=== PATIENT | female | born 1970 | race Caucasian/White ===

== ENCOUNTER → 2016-09-08 | Outpatient (CLI) | payer BC, OTHER ==
--- NOTE | 2016-09-08 10:43 | REPMRS ---
Patient History The patient states she had a clinical breast exam in 08/2016. Patient had first child at age 30. Family history of colorectal cancer in father at age 77 and colorectal cancer in 2 paternal uncles. Taking hormonal contraceptives for 7 years. Digital Woman Screen Mammo: September 08, 2016 - Exam #: [id number] Bilateral CC and MLO view(s) were taken. Technologist: Saritha German, Technologist Prior study comparison: May 15, 2015, digital woman screen mammo performed at [facility]. December 26, 2013, digital woman screen mammo performed at [facility]. FINDINGS: There are scattered fibroglandular densities. There has been no change in the appearance of the mammogram from the prior studies. There is a mild amount of residual fibroglandular tissue which is fairly symmetric. There is no interval development of dominant mass, architectural distortion, or clustered microcalcification suggestive of malignancy. Skin mole overlies lower outer quadrant left breast unchanged. Scattered lymph nodes are seen in the right axilla. No significant changes when compared with prior studies. ASSESSMENT: BI-RADS/ACR category 2 mammogram. Benign finding(s). Recommendation Routine screening mammogram in 1 year (for women over age 40). This mammogram was interpreted with the aid of an FDA-approved computer-aided dectection system. A. Negative x-ray reports should not delay biopsy if a dominant or clinically suspicious mass is present. B. Four to eight percent of cancers are not identified by mammography. C. Adenosis and dense breast may obscure an underlying neoplasm. Electronically Signed By: Guille Mcdaniel MD 09/08/16 1849
== END ==
LOC: M WHC 09:32
PROVIDERS: ATTEND Nurse Practitioner Family
DX: Z12.31 Encounter for screening mammogram for malignant neoplasm of breast (principal)

== ENCOUNTER → 2016-09-08 | Outpatient (REF) | payer OTHER | LOC: M SFHCWAGY 11:30 | PROVIDERS: ATTEND Nurse Practitioner Family | DX: Z12.4 Encounter for screening for malignant neoplasm of cervix (principal); Z12.31 Encounter for screening mammogram for malignant neoplasm of breast ==

== ENCOUNTER → 2018-01-27 | Outpatient (REF) | payer OTHER ==
[2018-01-29 16:20] LABS: HPV HYBRID CAPTURE II Negative (Negative)
== END ==
LOC: M SFHCWAGY 10:32
DX: Z12.4 Encounter for screening for malignant neoplasm of cervix (principal)

== ENCOUNTER → 2018-01-27 | Outpatient (CLI) | payer BC | LOC: M WHC 10:02 | DX: Z12.31 Encounter for screening mammogram for malignant neoplasm of breast (principal) | CPT/HCPCS: 77067 ==

== ENCOUNTER → 2019-05-10 | Outpatient (REF) | payer OTHER | LOC: M SFHCWAGY 11:59 | PROVIDERS: ATTEND Nurse Practitioner Family | DX: N95.1 Menopausal and female climacteric states (principal) ==

== ENCOUNTER → 2019-05-10 | Outpatient (CLI) | payer BC ==
--- NOTE | 2019-05-10 12:30 | REPMRS ---
Patient History The patient states she had a clinical breast exam in 04/2019. Patient had first child at age 30. Family history of colorectal cancer in paternal uncle, colorectal cancer at age 77 in father, colorectal cancer in paternal uncle. Taking hormonal contraceptives for 9 years 3 months. 3D TOMOSYNTHESIS WAS PERFORMED. The [facility] lifetime risk for breast cancer is 12.9%. Digital Woman Screen Mammo: May 10, 2019 - Exam #: [id number] Bilateral CC and MLO view(s) were taken. Technologist: Hanh Stokes Technologist Prior study comparison: January 27, 2018, bilateral digital woman screen mammo performed at [facility]. September 08, 2016, digital woman screen mammo performed at [facility]. FINDINGS: There are scattered fibroglandular densities. There has been no change in the appearance of the mammogram from the prior studies. There is a mild amount of residual fibroglandular tissue which is fairly symmetric. There is no interval development of dominant mass, architectural distortion, or clustered microcalcification suggestive of malignancy. Assessment: BI-RADS/ACR category 1 mammogram. Negative Mammogram. Recommendation Routine screening mammogram in 1 year (for women over age 40). This mammogram was interpreted with the aid of an FDA-approved computer-aided dectection system. Electronically Signed By: Waqar Garcia MD 05/10/19 [id number]
== END ==
LOC: M WHC 10:34
PROVIDERS: ATTEND Nurse Practitioner Family
DX: Z12.31 Encounter for screening mammogram for malignant neoplasm of breast (principal); Z80.0 Family history of malignant neoplasm of digestive organs

== ENCOUNTER 2019-09-05 07:07 | Day surgery (SDC) | payer BC, OTHER ==
[~2019-09-05] VITALS: Ht 162.6 cm; Wt 86.6 kg
[~2019-09-05 07:07] MED LIST: NS 1,000 ML IV ONE
[2019-09-05] MEDS ORDERED: LIDOCAINE 2% INJ 100 MG/5 ML SDV (FOR ANES.) As Ordered ONE (07:18)
[2019-09-05] MEDS ORDERED: propofoL 200 MG/20 ML VIAL As Ordered ONE ×2 (07:33→08:20)
--- NOTE | 2019-09-05 08:41 | ROOR ---
Patient Name: Katie Velasquez Procedure Date: 09/05/2019 8:00 AM Date of : 1970 Age: 49 Room: [facility] Gender: Female Note Status: Finalized Procedure: Colonoscopy Indications: Screening for colorectal malignant neoplasm Providers: Preston Tomlin MD Referring MD: Mima Holcomb NP Requesting Provider: Medicines: Monitored Anesthesia Care Complications: No immediate complications. Procedure: Pre-Anesthesia Assessment: - Prior to the procedure, a History and Physical was performed, and patient medications and allergies were reviewed. The patient is competent. The risks and benefits of the procedure and the sedation options and risks were discussed with the patient. All questions were answered and informed consent was obtained. Patient identification and proposed procedure were verified by the physician, the nurse and the anesthesiologist in the procedure room. Mental Status Examination: alert and oriented. Airway Examination: normal oropharyngeal airway and neck mobility. Respiratory Examination: clear to auscultation. CV Examination: normal. Prophylactic Antibiotics: The patient does not require prophylactic antibiotics. Prior Anticoagulants: The patient has taken no previous anticoagulant or antiplatelet agents. ASA Grade Assessment: II - A patient with mild systemic disease. After reviewing the risks and benefits, the patient was deemed in satisfactory condition to undergo the procedure. The anesthesia plan was to use monitored anesthesia care (MAC). Immediately prior to administration of medications, the patient was re-assessed for adequacy to receive sedatives. The heart rate, respiratory rate, oxygen saturations, blood pressure, adequacy of pulmonary ventilation, and response to care were monitored throughout the procedure. The physical status of the patient was re-assessed after the procedure. The colonoscopy was performed without difficulty. The patient tolerated the procedure well. The quality of the bowel preparation was good. The terminal ileum, ileocecal valve, appendiceal orifice, and rectum were photographed. Scope insertion time was 2 minutes. Scope withdrawal time was 8 minutes. The total duration of the procedure was 10 minutes. The Colonoscope was introduced through the anus and advanced to the terminal ileum, with identification of the appendiceal orifice and IC valve. Findings: The perianal and digital rectal examinations were normal. The terminal ileum appeared normal. A 4 mm polyp was found in the ascending colon. The polyp was sessile. The polyp was removed with a cold snare. Resection was complete, but the polyp tissue was not retrieved. Two sessile polyps were found in the rectum. The polyps were 4 to 5 mm in size. These polyps were removed with a cold snare. Resection and retrieval were complete. Verification of patient identification for the specimen was done by the physician and nurse using the patient's name, date and medical record number. Estimated blood loss was minimal. A few small and large-mouthed diverticula were found in the sigmoid colon. There was no evidence of diverticular bleeding. Non-bleeding external and internal hemorrhoids were found during retroflexion. The hemorrhoids were small. Impression: - The examined portion of the ileum was normal. - One 4 mm polyp in the ascending colon, removed with a cold snare. Complete resection. Polyp tissue not retrieved. - Two 4 to 5 mm polyps in the rectum, removed with a cold snare. Resected and retrieved. - Moderate diverticulosis in the sigmoid colon. There was no evidence of diverticular bleeding. - Non-bleeding external and internal hemorrhoids. Recommendation: - Patient has a contact number available for emergencies. The signs and symptoms of potential delayed complications were discussed with the patient. Return to normal activities tomorrow. Written discharge instructions were provided to the patient. - High fiber diet. - Continue present medications. - Use fiber, for example Citrucel, Fibercon, Konsyl or Metamucil. - Await pathology results. - Repeat colonoscopy in 3 - 5 years for surveillance based on pathology results. - Telephone GI clinic for pathology results in 2 weeks. - Return to primary care physician. Preston Tomlin MD Preston Tomlin MD 09/05/2019 8:40:40 AM Electronically signed by Preston Tomlin MD Number of Addenda: 0 Note Initiated On: 09/05/2019 7:29 AM Estimated Blood Loss: Estimated blood loss was minimal.
[2019-09-05 08:45] VITALS: BP 140/91
== END 2019-09-05 08:58 | disposition home or self-care (01) ==
LOC: M OPP 07:07
PROVIDERS: ATTEND Internal Medicine Gastroenterology
DX: Z12.11 Encounter for screening for malignant neoplasm of colon (principal); Z80.0 Family history of malignant neoplasm of digestive organs; K64.8 Other hemorrhoids; K62.1 Rectal polyp; K57.30 Diverticulosis of large intestine without perforation or abscess without bleeding; Z88.0 Allergy status to penicillin; Z88.1 Allergy status to other antibiotic agents; Z97.5 Presence of (intrauterine) contraceptive device

== ENCOUNTER → 2020-04-12 | Outpatient (CLI) | payer BC, OTHER ==
[~2020-04-12] MED LIST changes: +MIRE1IUD IU; -NS 1,000 ML IV ONE
== END ==
LOC: M LABSMTC 11:11
PROVIDERS: ATTEND Anesthesiology
DX: Z01.812 Encounter for preprocedural laboratory examination (principal); Z20.828 Contact with and (suspected) exposure to other viral communicable diseases
CPT/HCPCS: C9803; U0003

== ENCOUNTER 2020-04-17 08:41 | Day surgery (SDC) | payer BC, OTHER ==
[~2020-04-17] VITALS: Ht 162.6 cm; Wt 88.5 kg
[~2020-04-17 08:41] MED LIST changes: +LR 1,000 ML IV ONE
[2020-04-17 09:26] LABS: HEMATOCRIT 38.5 % (36.0-47.0); HEMOGLOBIN 12.8 g/dl (12.0-15.5); MEAN CORPUSCULAR HEMOGLOBIN 30.8 pg (27.0-33.0); MEAN CORPUSCULAR HGB CONC 33.2 g/dl (32.0-36.5); MEAN CORPUSCULAR VOLUME 92.8 fl (80.0-96.0); PLATELET COUNT, AUTOMATED 193 10^3/uL (150-450); RED BLOOD COUNT 4.15 10^6/uL (4.00-5.40); WHITE BLOOD COUNT 3.5 10^3/uL (4.0-10.0)
[2020-04-17 09:43] LABS: BLOOD UREA NITROGEN 14 MG/DL (7-18); CALCIUM LEVEL 9.1 MG/DL (8.5-10.1); CARBON DIOXIDE LEVEL 28 MEQ/L (21-32); CHLORIDE LEVEL 111 MEQ/L (98-107); CREATININE FOR GFR 0.86 MG/DL (0.55-1.30); GLOMERULAR FILTRATION RATE > 60.0 (>51); GLUCOSE, FASTING 91 MG/DL (70-100); POTASSIUM SERUM 4.2 MEQ/L (3.5-5.1); SODIUM LEVEL 142 MEQ/L (136-145)
[2020-04-17] MEDS ORDERED: ROCURONIUM BROMIDE 50 MG/5 ML VIAL As Ordered ONE ×2 (10:45→12:57)
[2020-04-17] MEDS ORDERED: MIDAZOLAM INJ 2MG/2ML VIAL (J2250 PER 1MG) As Ordered ONE (10:45)
[2020-04-17] MEDS ORDERED: propofoL 200 MG/20 ML VIAL As Ordered ONE (10:45)
[2020-04-17] MEDS ORDERED: LIDOCAINE 2% 100MG/5ML SDV (FOR ANES.) As Ordered ONE (10:45)
[2020-04-17] MEDS ORDERED: fentaNYL 100 MCG/2 ML INJECTION (J3010) As Ordered ONE (10:45)
[2020-04-17] MEDS ORDERED: METHYLENE BLUE 0.5% (5MG/ML) 10 ML AMP (PROVAYBLUE) As Ordered ONE (11:31)
[2020-04-17] MEDS ORDERED: LIDOCAINE W/EPINEPHRINE 1% 20ML VIAL As Ordered ONE (11:31)
[2020-04-17] MEDS ORDERED: EPINEPHrine 1MG/ML INJ 30ML MD-VIAL As Ordered ONE (11:31)
[2020-04-17] MEDS ORDERED: LACRILUBE (AKWA TEARS) OPHTH OINT 3.5 GM As Ordered ONE (12:05)
[2020-04-17] MEDS ORDERED: dexameTHASONE 4 MG/ML 1ML VIAL (J1100 PER 1MG) As Ordered ONE (12:10)
[2020-04-17] MEDS ORDERED: ONDANSETRON 4MG/2ML VIAL As Ordered ONE (12:10)
[2020-04-17] MEDS ORDERED: ePHEDrine SULFATE 25 MG/5 ML(5MG/ML) SYRINGE As Ordered ONE (12:16)
[2020-04-17] MEDS ORDERED: ACETAMINOPHEN 1000MG 100ML IV BTL (OFIRMEV) (J0131 PER 10MG) As Ordered ONE (12:16)
[2020-04-17] MEDS ORDERED: HYDROmorphone HCL 2 MG/ML 1ML VIAL (J1170) As Ordered ONE (12:17)
[2020-04-17] MEDS ORDERED: METOCLOPRAMIDE INJ 10MG/2ML VIAL (J2765 PER 1) As Ordered ONE (12:17)
[2020-04-17] MEDS ORDERED: ONDANSETRON 4MG/2ML VIAL IV PRN (14:30)
[2020-04-17] MEDS ORDERED: HYDROMORPHONE HCL 0.5 MG/ 0.5 ML SYRINGE (J1170 PER 1) IV PRN (14:30)
[2020-04-17] MEDS ORDERED: fentaNYL 100 MCG/2 ML INJECTION (J3010) IV PRN (14:30)
[2020-04-17] MEDS ORDERED: oxyCODONE 5MG TAB PO PRN (14:30)
[2020-04-17] MEDS ORDERED: LR 1,000 ML IV SCH ×2 (14:30→15:30)
[2020-04-17 15:15] VITALS: BP 120/73
[2020-04-17] MEDS ORDERED: ACETAMINOPH W/CODEINE #3 TAB UD PO PRN (15:30)
--- NOTE | 2020-04-25 07:13 | RO ---
DATE OF OPERATION: 04/17/20 SURGEON: Dr. Ascencion Bonilla PREOPERATIVE DIAGNOSIS: Deviated septum and left nasolacrimal duct obstruction. POSTOPERATIVE DIAGNOSIS: Deviated septum and left nasolacrimal duct obstruction. OPERATIVE PROCEDURE: Septoplasty, left endoscopic DCR. FINDINGS: There was pus within the lacrimal sac. PROCEDURE: Under general anesthesia with the patient intubated the patient was prepped and draped in usual manner. I used pledgets of Adrenalin 1:100,000 and infiltrated with Lidocaine with Epinephrine. I started first by making an incision in the septum anteriorly and elevated subperichondrial periosteal plane. I then made an incision in the quadrangular cartilage inferiorly and posteriorly and then removed some cartilage inferiorly and the ethmoid plate which was deviated toward the left side posteriorly. Once this was done the septum was straight so I closed that and sutured with 4-0 chromic. I then made an incision just above the insertion of the anterior aspect of the middle turbinate anteriorly and then one inferiorly and then joined those two anteriorly and then dissected and removed that mucosa. Using the drill I drilled down through the bone into an area where the sac was. I used a drill to open this area and as well the Kerrison rongeur. Once this was done I identified the inferior canaliculus and dilated it up and put a light pipe in to ensure that I was in the right place and I removed a bit more bone superiorly and once that was done then I made an incision using a sickle knife and opened up into the sac and creamy white fluid drained out. I opened the sac up anteriorly medially and then I put in stent through the inferior canaliculus. I did the same thing to the superior canaliculus, passing it into the nose. I cauterized areas that were bleeding and then I used hemoclip to join the two stents medially inside the nose and once that was done I put some Gelfoam over the area. The patient tolerated the procedure well. Less than 50 mL of blood loss. The patient was extubated and transferred to the recovery room in excellent condition. CHRISTIAN
== END 2020-04-17 15:50 | disposition home or self-care (01) ==
LOC: M SDC 08:41
PROVIDERS: ATTEND Otolaryngology
DX: J34.2 Deviated nasal septum (principal); H04.552 Acquired stenosis of left nasolacrimal duct; Z88.0 Allergy status to penicillin
CPT/HCPCS: 30520; 31239; 36415; 68815; 80048; 85027; 88300; C1876; J0131; J1100; J1170; J2250; J2405; J2765; J3010; Q9968

== ENCOUNTER → 2020-05-11 | Outpatient (CLI) | payer BC, OTHER ==
[~2020-05-11] MED LIST changes: -LR 1,000 ML IV ONE
--- NOTE | 2020-05-11 12:31 | REPMRS ---
Patient History Family history of colorectal cancer in paternal uncle, colorectal cancer at age 77 in father, colorectal cancer in paternal uncle. Taking hormonal contraceptives for 9 years 3 months. 3D TOMOSYNTHESIS WAS PERFORMED. The [facility] lifetime risk for breast cancer is 12.6%. Volpara breast density b. Digital Woman Screen Mammo: May 11, 2020 - Exam #: [id number] Bilateral CC and MLO view(s) were taken. Technologist: Maru Zarate, Technologist Prior study comparison: May 10, 2019, bilateral digital woman screen mammo performed at [facility]. January 27, 2018, bilateral digital woman screen mammo performed at [facility]. FINDINGS: There are scattered fibroglandular densities. There has been no change in the appearance of the mammogram from the prior studies. There is a mild amount of residual fibroglandular tissue which is fairly symmetric. There is no interval development of dominant mass, architectural distortion, or clustered microcalcification suggestive of malignancy. Assessment: BI-RADS/ACR category 1 mammogram. Negative Mammogram. Recommendation Routine screening mammogram in 1 year (for women over age 40). This mammogram was interpreted with the aid of an FDA-approved computer-aided dectection system. Electronically Signed By: Waqar Garcia MD 05/11/20 [id number]
== END ==
LOC: M WHC 09:54
PROVIDERS: ATTEND Nurse Practitioner Family
DX: Z12.31 Encounter for screening mammogram for malignant neoplasm of breast (principal); Z80.0 Family history of malignant neoplasm of digestive organs; Z92.0 Personal history of contraception

== ENCOUNTER → 2021-10-31 | Outpatient (REF) | payer OTHER | LOC: M LAB REF 14:21 | PROVIDERS: ATTEND Physician Assistant | DX: R05.9 Cough, unspecified (principal) ==

== ENCOUNTER → 2022-01-10 | Outpatient (CLI) | payer BC, OTHER | LOC: M WHC 08:14 | PROVIDERS: ATTEND Advanced Practice Midwife | DX: Z12.31 Encounter for screening mammogram for malignant neoplasm of breast (principal) ==

== ENCOUNTER → 2022-01-10 | Outpatient (REF) | payer OTHER | LOC: M PLALAB 13:31 | PROVIDERS: ATTEND Advanced Practice Midwife | DX: Z12.4 Encounter for screening for malignant neoplasm of cervix (principal) | CPT/HCPCS: 87624; G0123 ==

== ENCOUNTER 2022-11-06 13:24 | Day surgery (SDC) | payer BC, OTHER ==
[~2022-11-06] VITALS: Ht 162.6 cm; Wt 86.2 kg
[~2022-11-06 13:24] MED LIST changes: +LIDOCAINE 2% 100MG/5ML SDV (FOR ANES.) As Ordered ONE; +MIDAZOLAM INJ 2MG/2ML VIAL As Ordered ONE; +fentaNYL 100 MCG/2 ML INJECTION As Ordered ONE; +propofoL 200 MG/20 ML VIAL As Ordered ONE
[2022-11-06] MEDS ORDERED: LR 1,000 ML IV SCH (13:30)
[2022-11-06 14:01] LABS: HEMATOCRIT 41.2 % (36.0-47.0); HEMOGLOBIN 13.8 g/dl (12.0-15.5); MEAN CORPUSCULAR HEMOGLOBIN 30.9 pg (27.0-33.0); MEAN CORPUSCULAR HGB CONC 33.5 g/dl (32.0-36.5); MEAN CORPUSCULAR VOLUME 92.4 fl (80.0-96.0); PLATELET COUNT, AUTOMATED 220 10^3/uL (150-450); RED BLOOD COUNT 4.46 10^6/uL (4.00-5.40); WHITE BLOOD COUNT 5.9 10^3/uL (4.0-10.0)
[2022-11-06] MEDS ORDERED: KETOROLAC 60MG 2ML VIAL As Ordered ONE (16:01)
[2022-11-06] MEDS ORDERED: propofoL 200 MG/20 ML VIAL As Ordered ONE (16:11)
[2022-11-06 17:10] VITALS: BP 135/81
== END 2022-11-06 17:15 | disposition home or self-care (01) ==
LOC: M SDC 13:24
PROVIDERS: ATTEND Obstetrics & Gynecology
DX: T83.32XA Displacement of intrauterine contraceptive device, initial encounter (principal); Z86.16 Personal history of COVID-19; Z88.0 Allergy status to penicillin
CPT/HCPCS: 36415; 58562; 85027; 86850; 86900; 86901; J1885; J2250; J3010

== ENCOUNTER 2023-03-20 07:15 | Day surgery (SDC) | payer BC, OTHER ==
[~2023-03-20] VITALS: Ht 162.6 cm; Wt 86.3 kg
[~2023-03-20 07:15] MED LIST changes: -LIDOCAINE 2% 100MG/5ML SDV (FOR ANES.) As Ordered ONE; -MIDAZOLAM INJ 2MG/2ML VIAL As Ordered ONE; +NS 1,000 ML IV ONE; -fentaNYL 100 MCG/2 ML INJECTION As Ordered ONE; -propofoL 200 MG/20 ML VIAL As Ordered ONE
[2023-03-20] MEDS ORDERED: propofoL 200 MG/20 ML VIAL As Ordered ONE (08:52)
[2023-03-20] MEDS ORDERED: LIDOCAINE 2% 100MG/5ML SDV (FOR ANES.) As Ordered ONE (08:52)
[2023-03-20 09:30] VITALS: TEMP 97.6
[2023-03-20 09:50] VITALS: BP 115/78; O2SAT 96
== END 2023-03-20 09:55 | disposition home or self-care (01) ==
LOC: M OPP 07:15
PROVIDERS: ATTEND Internal Medicine Gastroenterology
DX: Z12.11 Encounter for screening for malignant neoplasm of colon (principal); Z86.010 Personal history of colon polyps; K57.30 Diverticulosis of large intestine without perforation or abscess without bleeding; K64.4 Residual hemorrhoidal skin tags; K64.8 Other hemorrhoids

== ENCOUNTER → 2023-06-26 | Outpatient (CLI) | payer BC, OTHER ==
[~2023-06-26] MED LIST changes: -NS 1,000 ML IV ONE
[2023-06-26 15:30] LABS: CHOLESTEROL RISK RATIO 5.84 (<5); HDL CHOLESTEROL 42.4 MG/DL (>40); LDL CHOLESTEROL 172.8 MG/DL (<100); NON-HDL-C 205.6 MG/DL
== END ==
LOC: M PLALAB 12:07
PROVIDERS: ATTEND Registered Nurse
DX: E78.00 Pure hypercholesterolemia, unspecified (principal)

== ENCOUNTER → 2024-05-11 | Outpatient (CLI) | payer BC | LOC: M WHC 07:53 | PROVIDERS: ATTEND Advanced Practice Midwife | DX: Z12.31 Encounter for screening mammogram for malignant neoplasm of breast (principal) ==

== ENCOUNTER → 2025-03-06 | Outpatient (CLI) | payer BC ==
[2025-03-06 11:38] LABS: CHOLESTEROL LEVEL 257.0 MG/DL (<200); CHOLESTEROL RISK RATIO 5.73 (<5); LDL CHOLESTEROL 172.6 MG/DL (<100); NON-HDL-C 212.2 MG/DL; TRIGLYCERIDES LEVEL 198.0 MG/DL (<150)
[2025-03-06 11:41] LABS: FREE T4 1.01 NG/DL (0.89-1.76)
[2025-03-06 12:00] LABS: ESTIMATED AVERAGE GLUCOSE 108.0 MG/DL (60-110)
== END ==
LOC: M PLALAB 07:53
PROVIDERS: ATTEND Nurse Practitioner Family
DX: Z13.220 Encounter for screening for lipoid disorders (principal); Z13.1 Encounter for screening for diabetes mellitus; Z13.29 Encounter for screening for other suspected endocrine disorder

== ENCOUNTER → 2025-05-17 | Outpatient (CLI) | payer BC | LOC: M WHC 07:46 | PROVIDERS: ATTEND Advanced Practice Midwife | DX: Z12.31 Encounter for screening mammogram for malignant neoplasm of breast (principal); R92.323 Mammographic fibroglandular density, bilateral breasts ==

== ENCOUNTER → 2025-05-17 | Outpatient (REF) | payer BC ==
[2025-05-19 14:17] LABS: HPV APTIMA Not Detected (Not Detected)
== END ==
LOC: M PLALAB 08:39
PROVIDERS: ATTEND Advanced Practice Midwife
DX: Z12.4 Encounter for screening for malignant neoplasm of cervix (principal)
CPT/HCPCS: 87624; G0123